=== PATIENT | female | born 1985 | race Caucasian/White ===

== ENCOUNTER 2016-08-25 13:27 | Emergency (ER) | payer OTHER, MEDICAID ==
[2016-08-25 13:41] VITALS: BP 128/84; BMI 31.5
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
[2016-08-25 15:45] VITALS: PULSE 61; RESP 16; TEMP 98.1; O2SAT 98
--- NOTE | 2016-08-25 15:50 | RAD ---
HISTORY: pain COMPARISON: None available. TECHNIQUE: Chest PA and lateral FINDINGS: LUNGS: No focal consolidation. Please note that chest x-ray has limited sensitivity for the detection of pulmonary masses. PLEURA: No significant pleural effusion identified. No definite pneumothorax . CARDIOVASCULAR: The cardiomediastinal silhouette appears within normal limits of size. OSSEOUS STRUCTURES: No acute osseous abnormality identified. VISUALIZED UPPER ABDOMEN: Unremarkable. OTHER FINDINGS: None. IMPRESSION: No focal consolidation, significant pleural effusion, or definite pneumothorax identified.
--- NOTE | 2016-08-25 15:52 | RAD ---
PROCEDURE: Cervical Spine Radiographs. HISTORY: Pain. COMPARISON: None available. FINDINGS: BONES: Straightening of the normal cervical lordosis may be related to muscle spasm or positioning. C7 is not well visualized on lateral views. No acute displaced fracture identified. Dens tip appears intact. DISC SPACES: Unremarkable. SOFT TISSUES: Unremarkable. No prevertebral soft tissue swelling. OTHER FINDINGS: None. IMPRESSION: Straightening of the normal cervical lordosis may be related to muscle spasm or positioning. C7 is not well visualized on lateral views. No acute displaced fracture identified.
--- NOTE | 2016-08-25 15:53 | RAD ---
PROCEDURE: Radiographs of the Sacrum and Coccyx HISTORY: pain COMPARISON: None available. TECHNIQUE: Frontal and lateral views of the sacrum and coccyx FINDINGS: BONES: Sacrum and coccyx unremarkable. No acute displaced fracture identified. SACROILIAC JOINTS: Unremarkable. OTHER FINDINGS: None. IMPRESSION: No acute displaced fracture identified.
== END 2016-08-25 15:45 | disposition home or self-care (01) ==
LOC: ED 13:27
DX: S30.0XXA Contusion of lower back and pelvis, initial encounter (principal); S16.1XXA Strain of muscle, fascia and tendon at neck level, initial encounter; V49.9XXA Car occupant (driver) (passenger) injured in unspecified traffic accident, initial encounter; M53.3 Sacrococcygeal disorders, not elsewhere classified

== ENCOUNTER 2017-06-13 16:03 | Emergency (ER) | payer MEDICAID ==
[2017-06-13 16:03] VITALS: BMI 31.5
[2017-06-13 16:12] VITALS: TEMP 98.5
[2017-06-13] MEDS ORDERED: Lactated Ringer's 500 ML in Lactated Ringer's 1,000 ML IV STA (16:32)
--- NOTE | 2017-06-13 16:44 | ED PDOC ---
Arrival/HPI - General Chief Complaint: Abdominal Pain Time Seen by Provider: 06/13/17 16:32 Historian: Patient - History of Present Illness Narrative History of Present Illness (Text): 06/13/17 16:33 pt p/w + sudden onset of suprapubic cramps/pain, non-radiating, at most pain is 7/10; pt states pain is intermittent; no dysuria, + noted hematuria vs vaginal spotting today; because pt has irregular menstrual cycles, pt's last menstrual cycle was ~ feb/march of last year; pt states intermittently with nausea, no vomiting and dizziness and expressed concern for , pt had checked at home and it says she is not preg; pt denied fever/chills/sweats, no cp/sob/ palpitations, no vomiting, no urinary frequency, no bowel changes, no gross bleeding, no fall/trauma/sick contact, no travel; pt denied rashes; pt denied other complaints; pt is here for further eval. Time/Duration: Other (< 1 day onset of suprapubic abd pain; > 2 months of intermittent dizziness/vomiting) Symptom Onset: Sudden, Gradual Symptom Course: Unchanged Quality: Tightness, Cramping Severity Level: 7 Activities at Onset: Rest Context: Home Past Medical History - Provider Review Nursing Documentation Reviewed: Yes - Travel History Have you recently traveled outside [place] w/in the past 3 mons?: No - Past History Past History: No Previous - Infectious Disease Hx of Infectious Diseases: None - Reproductive Menopause: No (irregular menses) - Psychiatric Hx Panic Disorder: No Hx Substance Use: No - Surgical History Other/Comment: breast augmentation 07/2015. Liposuction - Anesthesia Hx Anesthesia: Yes Hx Anesthesia Reactions: No Hx Malignant Hyperthermia: No Family/Social History - Physician Review Nursing Documentation Reviewed: Yes Family/Social History: No Known Family HX Smoking Status: Current Some Days Smoker Hx Alcohol Use: Yes Frequency of alcohol use: Socially Hx Substance Use: No Allergies/Home Meds Allergies/Adverse Reactions: Allergies No Known Allergies Allergy (Verified 06/13/17 16:08) Review of Systems - Review of Systems Constitutional: Fatigue Eyes: Normal ENT: Normal Respiratory: Normal Cardiovascular: Normal Gastrointestinal: Abdominal Pain, Nausea Genitourinary Female: Hematuria, Vaginal Bleeding. absent: Vaginal Discharge Musculoskeletal: Normal Skin: Normal Neurological: Dizziness. absent: Focal Weakness, Gait Changes, Speech Changes, Facial Droop, Disequilibrium, Seizure Endocrine: Normal Hemo/Lymphatic: Normal Psychiatric: Normal Physical Exam Vital Signs Reviewed: Yes (elevated BP) Vital Signs Temp Pulse Resp BP Pulse Ox 06/13/17 18:31 78 160/92 H 06/13/17 18:15 160/92 H 06/13/17 16:08 98.5 F 90 18 170/100 H 97 Temperature: Afebrile Blood Pressure: Hypertensive Pulse: Regular Respiratory Rate: Normal Appearance: Positive for: Well-Appearing, Non-Toxic, Other (mildly uncomfortable , resting in bed, alert/awake, GCS = 15, oriented x 3, NAD, cooperative) Pain Distress: None Mental Status: Positive for: Alert and Oriented X 3 - Systems Exam Head: Present: Atraumatic, Normocephalic Pupils: Present: PERRL, Other (visual field intact b/l, no nystagmus, no photophobia) Extroacular Muscles: Present: EOMI Conjunctiva: Present: Normal Ears: Present: Normal Mouth: Present: Moist Mucous Membranes, Normal Teeth, Other (uvula/tongue are midline, no exudate/lesions, no drooling/stridor, no dysphonia) Pharnyx: Present: Normal Nose (External): Present: Atraumatic Neck: Present: Normal Range of Motion, Trachea Midline, Other (no step off, no gross deformities, no nuchal rigidity). No: MIDLINE TENDERNESS Respiratory/Chest: Present: Clear to Auscultation, Good Air Exchange. No: Respiratory Distress, Accessory Muscle Use Cardiovascular: Present: Regular Rate and Rhythm, Normal S1, S2, Other (no m/r/r ). No: Murmurs Abdomen: Present: Tenderness (suprapubic tenderness, no adams's sign, no mcburney's point tenderness, no obturator's sign, no psoas sign), Normal Bowel Sounds, Other (well nourished female, no masses/rebound/guarding/rigidity). No : Distention, Peritoneal Signs Back: Present: Normal Inspection. No: CVA Tenderness Upper Extremity: Present: Normal Inspection, Normal ROM, NORMAL PULSES, Neurovascularly Intact, Capillary Refill < 2s. No: Cyanosis, Edema Lower Extremity: Present: Normal Inspection, NORMAL PULSES, Normal ROM, Neurovascularly Intact, Capillary Refill < 2 s. No: Edema Neurological: Present: GCS=15, CN II-XII Intact, Speech Normal Skin: Present: Warm, Dry, Normal Color, Other (cap refill < 1sec, no ulcerations , no petechiae). No: Rashes Psychiatric: Present: Alert, Oriented x 3, Normal Insight, Normal Concentration Medical Decision Making ED Course and Treatment: 06/13/17 16:53 Impression: dizziness/weakness; suprapubic tenderness i have consider all the differential diagnosis regarding pt's chief medical complaints/clinical findings, including but are not limited to: dizziness/ weakness; suprapubic tenderness (r/o infection); unlikely acs A/P: dizziness/weakness, suprapubic tenderness; abnl BP - labs - iv - u/s vs ct - observe - supportive care 06/13/17 18:13 pt is made aware of her medical results pt is awaiting u/s 06/13/17 19:11 pt felt some improvement pt's vital signs are improving pt is made aware of her medical results pt is encouraged fluids pt is encouraged avoid caffiene products pt is encourgaged weight loss pt will f/u as directed pt will be discharged home Re-evaluation Time: 18:13 Reassessment Condition: Improving,but remains with symptoms - Lab Interpretations Lab Results: 06/13/17 16:53 06/13/17 16:53 Lab Results 06/13/17 16:53: Sodium 141, Potassium 4.1, Chloride 104, Carbon Dioxide 25, Anion Gap 16, BUN 10, Creatinine 0.6 L, Est GFR ( Amer) > 60, Est GFR ( Non-Af Amer) > 60, Random Glucose 109, Calcium 9.3, Total Bilirubin 0.5, AST 43 H, ALT 81 H, Alkaline Phosphatase 82, Total Protein 8.0, Albumin 4.3, Globulin 3.7, Albumin/Globulin Ratio 1.1, Lipase 90 06/13/17 16:53: Urine Color Yellow, Urine Appearance Sl cloudy, Urine pH 6.5, Ur Specific [place] 1.020, Urine Protein Negative, Urine Glucose (UA) Negative, Urine Ketones Negative, Urine Blood Large H, Urine Nitrate Negative, Urine Bilirubin Negative, Urine Urobilinogen 0.2, Ur Leukocyte Esterase Negative, Urine RBC 10 - 15, Urine WBC 1 - 3, Ur Epithelial Cells 6 - 8, Urine Bacteria Few, Urine HCG, Qual Negative 06/13/17 16:53: WBC 6.5, RBC 4.67, Hgb 13.9, Hct 41.1, MCV 88.0, MCH 29.8, MCHC 33.8, RDW 12.6, Plt Count 288, MPV 8.5, Gran % 54.8, Lymph % (Auto) 37.9 H, [place] % (Auto) 5.6, Eos % (Auto) 1.4 L, Baso % (Auto) 0.3, Gran # 3.54, Lymph # 2.5, Quay # 0.4, Eos # 0.1, Baso # 0.02 WNL, + Blood noted urine I have reviewed the lab results: Yes Interpretation: All labs normal - RAD Interpretation Radiology Orders: 06/13/17 17:35 TRANSVAGINAL [US] Stat FINDINGS: UTERUS: Measures 12.7 x 5.9 x 7.2 cm. Anteverted. ENDOMETRIUM: Measures 4 mm in diameter. CERVIX: No cervical abnormality identified. RIGHT OVARY: Measures 3.5 x 2.3 x 4.0 cm. Blood flow is demonstrated. Follicles. LEFT OVARY: Measures 3.0 x 2.8 x 2.9 cm. Blood flow is demonstrated. Follicles. Appearance of what appears to be prominent vessels adjacent to the left ovary, possibly related to pelvic congestion syndrome. FREE FLUID: No significant free fluid noted. OTHER FINDINGS: None. IMPRESSION: Appearance of what appears to be prominent vessels adjacent to the left ovary, possibly related to pelvic congestion syndrome. Correlate clinically. This examination is predicated on a negative test. Correlate clinically. 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 - Medication Orders Current Medication Orders: Discontinued Medications Hydralazine HCl (Apresoline) 10 mg PO ONCE ONE Stop: 06/13/17 18:12 Last Admin: 06/13/17 18:31 Dose: 10 mg MAR Pulse and Blood Pressure Document 06/13/17 18:31 MS (Rec: 06/13/17 18:32 [facility] Pulse Pulse Rate (60-90) 78 Blood Pressure Blood Pressure (100/60-150/90) 160/92 Lactated Ringer's 500 ml/ (Lactated Ringer's) 1,500 mls @ 1,000 mls/hr IV BOLUS STA Stop: 06/13/17 18:01 Last Admin: 06/13/17 16:55 Dose: 1,000 mls/hr eMAR Start Stop Document 06/13/17 16:55 MS (Rec: 06/13/17 16:56 MS [facility]) Intravenous Solution Start Date 06/13/17 Start Time 16:55 Ketorolac Tromethamine (Toradol) 30 mg IVP STAT STA Stop: 06/13/17 18:11 Last Admin: 06/13/17 18:33 Dose: 30 mg MAR Pain Assessment Document 06/13/17 18:33 MS (Rec: 06/13/17 18:33 MS [facility]) Pain Reassessment Is this a pain reassessment? No Sleep Is patient sleeping during reassessment? No Presence of Pain Presence of Pain Yes Pain Scale Used Pain Scale Used Numeric Location Upper or Lower Lower Pain Location Body Site Abdomen Description Description Intermittent Intensity of Pain at present 6 Pain Behavior Guarding IVP Administration Document 06/13/17 18:33 MS (Rec: 06/13/17 18:33 MS [facility] Charges for Administration # of IVP Administrations 1 Metoclopramide HCl (Reglan) 10 mg IVP STAT STA Stop: 06/13/17 16:33 Last Admin: 06/13/17 16:58 Dose: Not Given Non-Admin Reason: Patient Refused IVP Administration Document 06/13/17 16:58 MS (Rec: 06/13/17 16:58 MS [facility]) Charges for Administration # of IVP Administrations 0 Disposition/Present on Arrival - Present on Arrival Any Indicators Present on Arrival: No History of DVT/PE: No History of Uncontrolled Diabetes: No Urinary Catheter: No History of Decub. Ulcer: No History Surgical Site Infection Following: None - Disposition Have Diagnosis and Disposition been Completed?: Yes Diagnosis: HTN (hypertension), Suprapubic pain, acute, Vaginal bleeding, abnormal Disposition: HOME/ ROUTINE Disposition Time: 18:58 Patient Plan: Discharge Condition: STABLE Discharge Instructions (ExitCare): Dysfunctional Uterine Bleeding (ED), Hypertension (ED), Abdominal Pain (ED) Print Language: CROATIAN Additional Instructions: Make sure to see your doctor in 1-2 days DRINK PLENTY OF FLUIDS take your medications as prescribed WATCH YOUR DIET AVOID caffiene products RETURN TO ED IF worse pain, cant breath, persistent vomiting, high fever >101- 102 for hours, altered behavior, slurr speech/one sided weakness, unable to urinate, heavy/persistent bleeding, passing out, chest pain, or other medical emergencies Prescriptions: Hydrochlorothiazide [Microzide] 12.5 mg PO BID #30 cap Ibuprofen [Motrin] 400 mg PO QID #30 tab traMADol [Ultram] 50 mg PO TID #15 tab Referrals: Kailee Zhang MD [Primary Care Provider] - Follow up with primary Forms: [employer] (Swazi)
[2017-06-13 17:01] LABS: BASO # 0.02 K/mm3 (0.0-2.0); BASO % 0.3 % (0.0-3.0); EOS # 0.1 (0.0-0.7); EOS % 1.4 % (1.5-5.0); GRAN # 3.54 (1.4-6.5); GRAN % 54.8 % (50.0-68.0); HEMOGLOBIN 13.9 g/dL (12.0-16.0); LYMPH # 2.5 (1.2-3.4); LYMPH % 37.9 % (22.0-35.0); MEAN CORPUSCULAR HEMOGLOBIN 29.8 pg (25.0-35.0); MEAN CORPUSCULAR HGB CONC 33.8 g/dl (31.0-37.0); MEAN PLATELET VOLUME 8.5 fl (7.0-11.0); MONO # 0.4 (0.1-0.6); MONO % 5.6 % (1.0-6.0); RBC 4.67 10^6/uL (3.5-6.1); RED CELL DISTRIBUTION WIDTH 12.6 % (11.5-14.5); WHITE BLOOD COUNT 6.5 10^3/ul (4.5-11.0)
[2017-06-13 17:03] LABS: PH,URINE 6.5 (4.7-8.0); URINE BILIRUBIN NEGATIVE (NEGATIVE); URINE BLOOD LARGE (NEGATIVE); URINE GLUCOSE (UA) NEGATIVE (NEGATIVE); URINE LEUKOCYTE ESTERASE NEGATIVE Leu/uL (NEGATIVE); URINE NITRATE NEGATIVE (NEGATIVE); URINE PROTEIN NEGATIVE mg/dL (<30 mg/dL); URINE UROBILINOGEN 0.2 E.U./dL (<1 E.U./dL)
[2017-06-13 17:07] LABS: URINE APPEARANCE SL CLOUDY (CLEAR); URINE COLOR YELLOW (YELLOW)
[2017-06-13 17:08] LABS: HCG,QUALITATIVE URINE NEGATIVE (NEGATIVE)
[2017-06-13 17:12] LABS: URINE BACTERIA FEW (NEG)
[2017-06-13 17:13] LABS: ALB/GLOB RATIO 1.1 (1.1-1.8); ALBUMIN 4.3 g/dL (3.0-4.8); ALT/SGPT 81 U/L (7-56); AST/SGOT 43 U/L (14-36); BLOOD UREA NITROGEN 10 mg/dL (7-21); CALCIUM 9.3 mg/dL (8.4-10.5); GFR AFRICAN-AMERICAN > 60; GFR NON-AFRICAN AMERICAN > 60; LIPASE 90 U/L (23-300)
--- NOTE | 2017-06-13 18:39 | US ---
HISTORY: vaginal bleeding/hematuria, suprapubic pain COMPARISON: Transvaginal pelvic ultrasound performed 11/10/16 TECHNIQUE: Real-time transabdominal pelvic ultrasound was performed. In addition a transvaginal pelvic ultrasound was necessary to better depict pelvic anatomy. FINDINGS: UTERUS: Measures 12.7 x 5.9 x 7.2 cm. Anteverted. ENDOMETRIUM: Measures 4 mm in diameter. CERVIX: No cervical abnormality identified. RIGHT OVARY: Measures 3.5 x 2.3 x 4.0 cm. Blood flow is demonstrated. Follicles. LEFT OVARY: Measures 3.0 x 2.8 x 2.9 cm. Blood flow is demonstrated. Follicles. Appearance of what appears to be prominent vessels adjacent to the left ovary, possibly related to pelvic congestion syndrome. FREE FLUID: No significant free fluid noted. OTHER FINDINGS: None. IMPRESSION: Appearance of what appears to be prominent vessels adjacent to the left ovary, possibly related to pelvic congestion syndrome. Correlate clinically. This examination is predicated on a negative test. Correlate clinically.
[2017-06-13 19:13] VITALS: BP 112/88; PULSE 82; RESP 16; O2SAT 99
--- NOTE | 2017-06-14 08:36 | CARD ---
APPROVED REPORT EKG Measurement Heart [id number] <Conclusion> Normal sinus rhythm Normal ECG
== END 2017-06-13 19:13 | disposition home or self-care (01) ==
LOC: ED 16:03
DX: I10 Essential (primary) hypertension (principal); N93.8 Other specified abnormal uterine and vaginal bleeding; R10.2 Pelvic and perineal pain; F17.210 Nicotine dependence, cigarettes, uncomplicated
CPT/HCPCS: 76830; 80053; 81001; 83690; 84703; 85025; 87086; 93005; 96374; 99283; J1885; J7120